=== PATIENT | male | born 1975 | race American Indian/Alaskan Native ===

== ENCOUNTER 2022-02-16 20:13 | Emergency (ER) | payer SELFPAY ==
--- NOTE | 2022-02-17 00:33 | Emergency Department Report ---
ED General Adult HPI - General Chief complaint: Dizziness Stated complaint: DIZZY/SOB/COUGH/WEAKNESS PUI?: Yes Time Seen by Provider: 02/16/22 23:48 Source: patient, RN notes reviewed Mode of arrival: Ambulatory Limitations: No Limitations - History of Present Illness Initial comments: The patient was evaluated in the emergency department for symptoms described in the history of present illness. He/she was evaluated in the context of the global COVID-19 pandemic, which necessitated consideration that the patient might be at risk for infection with the virus that causes COVID-19. Institutional protocols and algorithms that pertain to the evaluation of patients at risk for COVID-19 are in a state of rapid change based on information released by regulatory bodies including the CDC and federal and state organizations. These policies and algorithms were followed during the patient's care in the emergency department. Please note that these policies, procedures and recommendations changed on a rapid basis. This is a 46-year-old gentleman, who consumes tobacco and smoke products, who is not COVID-19 vaccinated, who is visiting from the [facility], complaining of cough, shortness of breath, dizziness, malaise and fatigue. Patient reports that he does not have a diagnosed history of obstructive sleep apnea. However, he reports that he has very poor sleep hygiene, and that sleep is not restful. He snores quite a bit at night, and reports that he will fall asleep while watching TV or movies. He denies physical pain, but endorses body aches. No loss of taste or smell. Reports multiple trips recently from [place] to [place] to [place]. No posterior leg pain or leg swelling. No hematemesis of bright red blood per rectum. No chest pain. -: Gradual, days(s), week(s) Consistency: constant Improves with: none Worsens with: movement - Related Data Previous Rx's Medication Instructions Recorded Last Taken Type Albuterol Sulfate [Proair 90 mcg IH Q4HR PRN #2 aer.pow.ba 02/17/22 Unknown Rx Respiclick] Nicotine Polacrilex [Nicotine Gum] 4 mg BC PRN #1 pack 02/17/22 Unknown Rx Allergies Allergy/AdvReac Type Severity Reaction Status Date / Time Penicillins Allergy Unknown Verified 02/16/22 22:04 ED Review of Systems ROS: Stated complaint: DIZZY/SOB/COUGH/WEAKNESS Other details as noted in HPI Constitutional: malaise, weakness. denies: fever Eyes: denies: eye discharge ENT: denies: epistaxis Respiratory: cough, shortness of breath Cardiovascular: dyspnea on exertion. denies: chest pain Gastrointestinal: denies: abdominal pain, hematemesis, melena, hematochezia Genitourinary: denies: dysuria Musculoskeletal: myalgia Neurological: weakness Hematological/Lymphatic: denies: easy bleeding ED Past Medical Hx - Medications Home Medications: Home Medications Medication Instructions Recorded Confirmed Last Taken Type Albuterol Sulfate [Proair 90 mcg IH Q4HR PRN #2 aer.pow.ba 02/17/22 Unknown Rx Respiclick] Nicotine Polacrilex [Nicotine Gum] 4 mg BC PRN #1 pack 02/17/22 Unknown Rx ED Physical Exam - General Limitations: No Limitations, Other (During the history and physical examination, I had on complete personal protective record) General appearance: alert, in no apparent distress, obese - Head Head exam: Present: atraumatic, normocephalic - Eye Eye exam: Present: normal appearance, EOMI. Absent: nystagmus - ENT ENT exam: Present: normal exam, normal orophraynx, mucous membranes moist, normal external ear exam - Neck Neck exam: Present: normal inspection, full ROM. Absent: tenderness, meningismus - Respiratory Respiratory exam: Present: other (Pulmonary auscultation not performed secondary to lack of disposable stethoscope). Absent: stridor - Cardiovascular Cardiovascular Exam: Present: other (Heart rate 105 bpm seen on night monitor.) - GI/Abdominal GI/Abdominal exam: Present: soft. Absent: distended, tenderness, guarding, rebo und, rigid, pulsatile mass - Rectal Rectal exam: Present: deferred - Extremities Exam Extremities exam: Present: normal inspection, full ROM, other (2+ pulses noted in the bilateral upper and lower extremities. There is no palpable cord. negative Homans sign. Muscular compartments are soft. The pelvis is stable.). Absent: pedal edema, calf tenderness - Back Exam Back exam: Present: normal inspection, full ROM. Absent: tenderness, CVA tenderness (R), CVA tenderness (L), paraspinal tenderness, vertebral tenderness - Neurological Exam Neurological exam: Present: alert, oriented X3, normal gait, other (No facial droop. Tongue midline. Extraocular movements intact bilaterally. Facial sensation intact to light touch in V1, V2, V3 distribution bilaterally. 5 and a 5 strength in 4 extremities. Sensation intact to light touch in 4 extremities.). Absent: motor sensory deficit - Psychiatric Psychiatric exam: Present: anxious - Skin Skin exam: Present: warm, dry, intact, normal color. Absent: rash ED Course Vital Signs 02/16/22 02/17/22 02/17/22 21:35 00:34 00:45 Temperature 98.6 F Pulse Rate 103 H Respiratory 18 Rate Blood Pressure 144/87 126/76 O2 Sat by Pulse 96 93 94 Oximetry 02/17/22 02/17/22 02/17/22 01:01 01:15 01:31 Temperature Pulse Rate 111 H 91 H 118 H Respiratory 24 26 H 22 Rate Blood Pressure 117/72 117/72 117/72 O2 Sat by Pulse 93 97 95 Oximetry 02/17/22 02/17/22 02/17/22 01:45 02:01 02:15 Temperature Pulse Rate 78 99 H 112 H Respiratory 32 H 31 H 28 H Rate Blood Pressure 117/72 128/66 128/66 O2 Sat by Pulse 93 95 94 Oximetry 02/17/22 02/17/22 02/17/22 02:31 02:45 03:01 Temperature Pulse Rate 97 H 76 108 H Respiratory 27 H 24 29 H Rate Blood Pressure 133/75 133/75 117/83 O2 Sat by Pulse 96 94 91 Oximetry 02/17/22 02/17/22 02/17/22 03:24 03:31 03:45 Temperature Pulse Rate 104 H Respiratory 15 Rate Blood Pressure 117/83 117/83 130/85 O2 Sat by Pulse 97 94 95 Oximetry - Reevaluation(s) Reevaluation #1: 02/17/22 01:16 Differential diagnosis, include but not limited to: Obstructive sleep apnea, obesity hypoventilation syndrome, COVID-19, pneumonia, deconditioning, CHF, pulmonary embolism Assessment and plan: 46-year-old gentleman likely presenting with symptomatic obstructive sleep apnea. However, he is not COVID-19 vaccinated, and has been doing quite a bit of traveling from the [facility]. Minimally tachycardic, O2 sat 92 to 95% on room air. Place patient on night monitor. Start isolation precautions. Obtain x-ray of the chest, and appropriate laboratory studies. Advised patient that he most likely has obstructive sleep apnea. We discussed diet lifestyle modifications, need to lose weight, and follow-up with an outpatient primary care doctor for definitive outpatient sleep study. Also discussed smoking and tobacco cessation, and completion of COVID-19 vaccination series. O2 sat exceeds 91%, therefore, does not meet criteria for admission or hospitalization based off of O2 sat at this time. Reevaluation #2: 02/17/22 01:18 Symptoms going on for days. Presuming troponin negative x1, acute myocardial infarction is ruled out 02/17/22 03:53 X-ray of the chest nonspecific. D-dimer elevated. CT scan of the chest negativ e for PE. Incidental presumed chronic findings noted. Vital signs reviewed and appreciated. Patient feels improved. Discharged with outpatient follow-up. Reevaluation #3: 02/17/22 04:11 On final reassessment, the patient is sleeping on his back, snoring loudly, and in no acute distress. Again, very suspicious for obstructive sleep apnea. ED Medical Decision Making - Lab Data Result diagrams: 02/17/22 00:46 02/17/22 00:46 Vital Signs 02/16/22 21:35 Temperature 98.6 F Pulse Rate 103 H Respiratory 18 Rate Blood Pressure 144/87 O2 Sat by Pulse 96 Oximetry - EKG Data -: EKG Interpreted by La EKG shows normal: sinus rhythm Rate: normal - EKG Data When compared to previous EKG there are: previous EKG unavailable 02/17/22 01:18 The EKG is interpreted at 21: 38 Sinus rhythm, 96 bpm. Normal axis, normal P wave axis, borderline high left ventricular voltage, abnormal EKG, not a STEMI - Radiology Data Radiology results: pending, report reviewed, image reviewed CTA CHEST WITH CONTRAST INDICATION / CLINICAL INFORMATION: S.O.B., Tachycardia, Hypoxia. TECHNIQUE: Axial CT images were obtained through the chest after injection of 100 cc Omnipaque 350 IV contrast. 3 plane MIP and/or 3D reconstructions were produced. All CT scans at this location are performed using CT dose reduction for ALARA by means of automated exposure control. COMPARISON: Chest x-ray 02/17/2022 FINDINGS: VASCULAR FINDINGS: PULMONARY ARTERY: Pulmonary artery is normal in size. No filling defects are present compatible with pulmonary artery embolus.. T HORACIC AORTA: No significant abnormality. CORONARY ARTERY CALCIFICATION: Present -- Mild. NONVASCULAR FINDINGS: LOWER NECK: Soft tissues and musculature of the lower neck demonstrate no significant abnormality. The thyroid demonstrates no significant abnormality. HEART: No significant abnormality. MEDIASTINUM / MAXIM: Borderline mediastinal nodes. ESOPHAGUS: No significant abnormality. LYMPH NODES: No adenopathy within the axilla, mediastinum, or maxim. LUNGS: Minimal atelectatic changes in the lower lobes. Respiratory motion ar tifact. PLEURA: Trace dependent right pleural effusion. No pneumothorax. THORACIC SOFT TISSUES: No significant abnormality of the chest wall or upper thoracic musculature. BONES: No significant skeletal abnormalities. ADDITIONAL CHEST FINDINGS: None. UPPER ABDOMEN: Findings compatible with hepatic steatosis. IMPRESSION: 1. No CT evidence for pulmonary embolism. 2. Trace dependent right pleural effusion. 3. Findings compatible with hepatic steatosis. Signer Name: Kris Lala II, MD Signed: 02/17/2022 2:39 AM Workstation Name: [id number] CHEST 2 VIEWS INDICATION / CLINICAL INFORMATION: dizzy cough. COMPARISON: None available. FINDINGS: SUPPORT DEVICES: None. HEART / MEDIASTINUM: No significant abnormality. LUNGS / PLEURA: Emphysematous changes are not excluded. No focal consolidation. No pneumothorax. BONES: No significant osseous abnormality. ADDITIONAL FINDINGS: Radiopaque foreign body to left of midline within the upper chest, further localization of possible. IMPRESSION: 1. Emphysematous changes are not excluded. No superimposed acute pathology otherwise demonstrated. Signer Name: Kris Lala II, MD Signed: 02/17/2022 1:15 AM Workstation Name: [id number] Critical care attestation.: If time is entered above; I have spent that time in minutes in the direct care of this critically ill patient, excluding procedure time. ED Disposition Clinical Impression: Dyspnea, COVID-19 vaccination not done, BMI 32.0-32.9,adult, Encounter for tobacco use cessation counseling Disposition: HOME / SELF CARE / HOMELESS Is pt being admited?: No Does the pt Need Aspirin: No Condition: Good Additional Instructions: As we discussed, patient likely has obstructive sleep apnea. First-line treatment is diet, exercise, and aggressive weight loss. We also recommend that the patient discontinue smoke products consumption, and complete his COVID-19 vaccination series. Also recommend that patient follow-up with an outpatient primary care doctor, web press operator assistant or sleep specialist within the next 2 weeks to arrange outpatient sleep study. Patient may take the prescribed cough medicine as needed and directed. Take the nicotine gum as directed. Please return to the emergency room right away with new pain, worsened pain, migration of pain, projectile vomiting, change in mental status, confusion, inability tolerate liquid feeds, new, worsened or different symptoms not present on the initial emergency room evaluation CT scan of the chest was obtained today, which demonstrated no pneumonia, or blood clot in the lungs. Incidental nonemergent findings were noted. Recommend patient have a primary care doctor contact medical records department to obtain copies of laboratory studies and radiology studies, to follow-up on nonemergent incidental abnormal findings Prescriptions: Nicotine Polacrilex [Nicotine Gum] 4 mg BC PRN #1 pack Albuterol Sulfate [Proair Respiclick] 90 mcg IH Q4HR PRN #2 aer.pow.ba PRN Reason: Wheezing Referrals: KARTHIKEYAN FERNANDEZ MD [Primary Care Provider] - 3-5 Days EMILE BURRELL MD [Staff Physician] - 3-5 Days [facility] [Provider Group] - 3-5 Days Forms: Work/School Release Form(ED)
[2022-02-17 01:13] LABS: Hematocrit 43.6 % (35.5-45.6); Hemoglobin 14.1 gm/dl (11.8-15.2); Mean Corpuscular HGB Conc 32 % (32-34); Mean Corpuscular Volume 88 fl (84-94); Platelet Count 215 K/mm3 (140-440); Red Blood Count 4.97 M/mm3 (3.65-5.03); Red Cell Distribution Width 14.4 % (13.2-15.2)
[2022-02-17 01:28] LABS: INR 0.88 (0.87-1.13)
[2022-02-17 01:38] LABS: Alanine Aminotransferase 47 units/L (7-56); Albumin 4.4 g/dL (3.9-5); BUN/Creatinine Ratio 10; Blood Urea Nitrogen 10 mg/dL (9-20); Calcium 8.9 mg/dL (8.4-10.2); Hemolysis Index 6
[2022-02-17] MEDS ORDERED: SODIUM CHLORIDE 0.9% 500 ML 500 ML IV ONE (01:56)
--- NOTE | 2022-02-17 02:19 | XRay Report ---
CHEST 2 VIEWS INDICATION / CLINICAL INFORMATION: dizzy cough. COMPARISON: None available. FINDINGS: SUPPORT DEVICES: None. HEART / MEDIASTINUM: No significant abnormality. LUNGS / PLEURA: Emphysematous changes are not excluded. No focal consolidation. No pneumothorax. BONES: No significant osseous abnormality. ADDITIONAL FINDINGS: Radiopaque foreign body to left of midline within the upper chest, further local ization of possible. IMPRESSION: 1. Emphysematous changes are not excluded. No superimposed acute pathology otherwise demonstrated. Signer Name: Kris Lala II, MD Signed: 02/17/2022 2:15 AM Workstation Name: [id number]
--- NOTE | 2022-02-17 03:44 | Cat Scan Report ---
CTA CHEST WITH CONTRAST INDICATION / CLINICAL INFORMATION: S.O.B., Tachycardia, Hypoxia. TECHNIQUE: Axial CT images were obtained through the chest after injection of 100 cc Omnipaque 350 IV contrast. 3 plane MIP and/or 3D reconstructions were produced. All CT scans at this location are per formed using CT dose reduction for ALARA by means of automated exposure control. COMPARISON: Chest x-ray 02/17/2022 FINDINGS: VASCULAR FINDINGS: PULMONARY ARTERY: Pulmonary artery is normal in size. No filling defects are present compatible with pulmonary artery embolus.. THORACIC AORTA: No significant abnormality. CORONARY ARTERY CALCIFICATION: Present -- Mild. NONVASCULAR FINDINGS: LOWER NECK: Soft tissues and musculature of the lower neck demonstrate no significant abnormality. Th e thyroid demonstrates no significant abnormality. HEART: No significant abnormality. MEDIASTINUM / KAYKAY: Borderline mediastinal nodes. ESOPHAGUS: No significant abnormality. LYMPH NODES: No adenopathy within the axilla, mediastinum, or kaykay. LUNGS: Minimal atelectatic changes in the lower lobes. Respiratory motion artifact. PLEURA: Trace dependent right pleural effusion. No pneumothorax. THORACIC SOFT TISSUES: No significant abnormality of the chest wall or upper thoracic musculature. BONES: No significant skeletal abnormalities. ADDITIONAL CHEST FINDINGS: None. UPPER ABDOMEN: Findings compatible with hepatic steatosis. IMPRESSION: 1. No CT evidence for pulmonary embolism. 2. Trace dependent right pleural effusion. 3. Findings compatible with hepatic steatosis. Signer Name: Kris Lala II, MD Signed: 02/17/2022 3:39 AM Workstation Name: [id number]
[2022-02-17 03:46] LABS: Basophils % (Manual) 0 % (0.0-1.8); RBC Morphology Normal; Total Cells Counted 100
[2022-02-17 03:51] VITALS: BP 130/85
--- NOTE | 2022-02-18 10:46 | Electrocardiograph Report ---
[facility] Test Date: 2022-02-16 Test Time: 21:38:18 Pat Name: MARTIN WOO Department: Room: Gender: M Wage And Salary Specialist: JOSIANE : 1975 Requested By: FACUNDO HONG Order Number: [id number] Reading MD: Erik Guzman Measurements Intervals [place] Rate: 96 P: 68 LA: 142 QRS: 72 QRSD: 98 T: 56 QT: 339 QTc: 428 Interpretive Statements Sinus rhythm No previous ECG available for comparison Electronically Signed On 02-18-2022 10:46:02 EDT by Erik Guzman
== END 2022-02-17 04:04 | disposition home or self-care (01) ==
LOC: ED 20:13
DX: R06.00 Dyspnea, unspecified (principal); Z71.6 Tobacco abuse counseling; Z68.32 Body mass index [BMI] 32.0-32.9, adult; Z88.0 Allergy status to penicillin
CPT/HCPCS: 36415; 71046; 71275; 80053; 84443; 84484; 85007; 85025; 85379; 85610; 93005; 99284; J7040; Q9967